=== PATIENT | female | born 1985 | race Caucasian/White ===

== ENCOUNTER 2019-06-06 10:26 | Emergency (ER) | payer MEDICAID, OTHER ==
[~2019-06-06] VITALS: Ht 177.8 cm; Wt 130.0 kg
[~2019-06-06 10:26] MED LIST: ALBU18HF2 IH
[2019-06-06 15:25] VITALS: BP 131/81
== END 2019-06-06 16:10 | disposition home or self-care (01) ==
LOC: ER 10:26
DX: J06.9 Acute upper respiratory infection, unspecified (principal); H66.92 Otitis media, unspecified, left ear; J45.909 Unspecified asthma, uncomplicated; R07.0 Pain in throat
CPT/HCPCS: 71045; 99283

== ENCOUNTER 2019-06-13 07:58 | Emergency (ER) | payer MEDICAID ==
[~2019-06-13] VITALS: Ht 160 cm; Wt 127.0 kg
[2019-06-13 10:19] VITALS: BP 125/65
[2019-06-13] MEDS ORDERED: SODIUM CHLORIDE 0.9% 1,000 ML IV ONE (13:22)
[2019-06-13] MEDS ORDERED: KETOROLAC 30MG/ML VIAL IV STA (13:22)
[2019-06-13] MEDS ORDERED: ACETAMINOPHEN 500MG TABLET PO ONE (13:30)
[2019-06-13 14:19] LABS: CHLORIDE 103 mEq/L (98-107)
[2019-06-13 14:53] LABS: BASOPHILS % 0.4 % (0.0-2.0); EOSINOPHILS % 1.5 % (0.0-5.0); HEMATOCRIT. 30.4 % (36.0-48.0); HEMOGLOBIN. 9.8 g/dL (12.0-16.0); LYMPHOCYTES % 7.1 % (20.0-50.0); MEAN CORPUSCULAR HEMOGLOBIN 25.6 pg (28.0-32.0); MEAN CORPUSCULAR VOLUME 79.4 fL (81.0-99.0); MEAN PLATELET VOLUME 7.9 fl (7.4-10.4); PLATELET 355 x1000/uL (130-400); RED BLOOD CELL COUNT 3.83 mill/uL (4.2-5.4); RED CELL DISTRIBUTION WIDTH 17.3 % (11.6-14.6)
== END 2019-06-13 16:16 | disposition home or self-care (01) ==
LOC: ER 07:58
DX: J11.1 Influenza due to unidentified influenza virus with other respiratory manifestations (principal); H92.03 Otalgia, bilateral; J45.909 Unspecified asthma, uncomplicated; R05 Cough
CPT/HCPCS: 36415; 71045; 80053; 85025; 96374; 99284; J1885; J7030